=== PATIENT | male | born 1955 | race Caucasian/White ===

== ENCOUNTER 2019-10-30 06:30 | Outpatient (CLI) | payer BC, OTHER ==
[2019-10-30 18:30] LABS: Bacteria/HPF None Seen HPF (None Seen); Bilirubin Negative (Negative); Blood, Urine 2+ (Negative); Clarity Clear (Clear); Glucose, Urine (Dipstick) Normal (Negative); Ketone, Urine Negative (Negative); Leukocyte 75 Leu/uL (Negative); Nitrite Negative (Negative); Protein, Urine (Dipstick) Negative (Neg-Trace); RBC/HPF 21-50 HPF (0-3); Specific Gravity, Urine 1.022 (1.002-1.036); Squamous Epithelial None Seen HPF (0-3); Urobilinogen Normal mg/dL (Less than 2); pH, Urine 5.5 (5.0-9.0)
[2019-10-30 18:32] LABS: INR-International Normal Ratio 0.9; PTT 27.2 sec (22.9-36.1); Prothrombin Time 12.2 sec (12.0-14.7)
[2019-10-30 18:34] LABS: Hemoglobin 15.3 g/dL (14.0-18.0); Mean Corpuscular HGB CONC 34.5 g/dL (32.0-36.0); Mean Corpuscular Hemoglobin 32.8 pg (27.0-31.0); Mean Corpuscular Volume 94.9 fL (78.0-98.0); Mean Platelet Volume 7.9 fL (7.4-10.4); Platelet Count 215 thou/uL (130-400); RBC Distribution Width 11.3 % (11.5-14.5); Red Blood Cell (RBC) Count 4.67 mill/uL (4.70-6.10); White Blood Cell (WBC) Count 8.4 thou/uL (4.8-10.8)
[2019-10-30 18:58] LABS: Anion Gap 16 mmol/L (10-20); BUN (Urea Nitrogen) 24 mg/dL (8.4-25.7); Calc. Creatinine Clearance 0 mL/min (70-130); Calcium 9.6 mg/dL (7.8-10.44); Carbon Dioxide 25 mmol/L (23-31); Chloride 106 mmol/L (98-107); Estimated GFR-MDRD 75; Glucose 103 mg/dL (80-115); Potassium 4.9 mmol/L (3.5-5.1); Sodium 142 mmol/L (136-145)
[2019-10-31 13:23] LABS: SARS-CoV-2 MS2 Positive; SARS-CoV-2 N Gene Negative; SARS-CoV-2 S Gene Negative; SARS-CoV-2 by NAA Not Detected (NotDetected); SARS-CoV-2 orf1ab Negative
== END 2019-10-30 06:31 | disposition home or self-care (01) ==
LOC: LABBT 06:30
PROVIDERS: ATTEND Urology
DX: Z01.818 Encounter for other preprocedural examination (principal); Z20.828 Contact with and (suspected) exposure to other viral communicable diseases; N20.0 Calculus of kidney
CPT/HCPCS: 80048; 81001; 85027; 85610; 85730; 87086; 87635; 93005; 93010; U0003

== ENCOUNTER 2019-11-02 09:17 | Day surgery (SDC) | payer BC ==
[2019-11-01 13:18] VITALS: BMI 28.5
[~2019-11-02 09:17] MED LIST: Lidocaine 1% PF 5 ML VIAL ONE; Ondansetron PF 4 MG/2 ML Vial ONE; PROPOFOL 200 MG/20 ML VIAL ONE; Rocuronium Bromide 10 MG/ML (10ML VIAL) ONE
[2019-11-02] MEDS ORDERED: Levofloxacin 500 mg/D5W 100 ml Premix Bag ONE (10:55)
[2019-11-02] MEDS ORDERED: Fentanyl 100 MCG/2 ML VIAL ONE (15:22)
[2019-11-02] MEDS ORDERED: Iothalamate Meglumine 60% 50 ML VIAL FS ONE (15:29)
[2019-11-02] MEDS ORDERED: B & O ONE (16:00)
[2019-11-02] MEDS ORDERED: Oxybutynin 5 MG TAB ONE (17:06)
--- NOTE | 2019-11-02 23:53 | OP ---
DATE OF PROCEDURE: 11/02/2019 SERVICES: Urology. PREOPERATIVE DIAGNOSIS: Right ureteral stone. POSTOPERATIVE DIAGNOSIS: Right ureteral stone. PROCEDURE PERFORMED: Right ureteroscopy laser lithotripsy, basket extraction of stones, and placement of a 6 x 26 double-J stent. INDICATION FOR PROCEDURE: Mr. Hodge is a 64-year-old white male with a right 8 mm proximal ureteral stone. This had failed spontaneous medical expulsive therapy. We had elected for ureteroscopy with risks and benefits discussed. He has agreed to proceed forward. DESCRIPTION OF PROCEDURE: After identification of armband and verification of consent, the patient was brought back to the operating room. He underwent general anesthesia with endotracheal intubation. He was then placed in dorsal lithotomy position and prepped and draped in usual sterile fashion. After appropriate time-out, a lubricated 22-Nauruan rigid cystoscope was introduced per urethra into the bladder and attention was turned to the right ureteral orifice. This was cannulated with a 0.035 Sensor wire up to the level of renal pelvis. This has a little bit difficulty in navigating past the stone, but was able to successfully navigate past. The cystoscope was then removed and a dual-lumen was advanced over the Sensor wire up to the level of the mid ureter. An Amplatz Super-Stiff wire was then placed through the second lumen and navigated up to the level of the stone. Attempts to pass the stone were unsuccessful, therefore we made a small coil with the flexible end of the Super Stiff wire just proximal to the stone and then the dual-lumen was removed. A long 12 x 14-Nauruan Bard ureteral access sheath was then advanced over the Super Stiff wire up to the level of the mid ureter. The inner cannula and the Super Stiff wire were then removed leaving the outer sheath and Sensor wire in place as a safety wire. A flexible digital ureteroscope was then passed through the ureteral access sheath up to the level of the stone, which was then found impacted in the proximal ureter. A 273 micron ball-tip laser fiber was then used to break the stone into small pieces and a 1.9-Nauruan ZeroTip Nitinol basket used to extract the larger stone fragments. The smaller stone fragments seemed to come out on their own and passed out through the sheath without issue. A pyeloscopy was performed, which demonstrated a hydronephrotic kidney with dilated renal calices. There were no additional stones noted within the kidney. Pull-back ureteroscopy was employed and no additional stones were found within the ureter. No mucosal dilations or splitting had occurred either. The cystoscope was then backloaded over the Sensor wire back into the bladder and a 6 x 26 double-J stent was advanced over the Sensor wire up to the level of renal pelvis. The wire was removed leaving a good curl in the kidney and a good curl in the bladder. The bladder was then emptied and cystoscope was removed. The patient was then taken out of position and awakened, taken to PACU for recovery in stable condition. He did have a B and O suppository placed in his rectum prior to awaking. COMPLICATIONS: None. ESTIMATED BLOOD LOSS: Minimal. RETAINED TUBES AND DRAINS: 6 x 26 double-J stent on the right. SPECIMENS: Stone for stone analysis. DISPOSITION: The patient will be discharged home and follow up with me in approximately 1 week for cystoscopy and stent removal. Job ID: [id number]
== END 2019-11-02 18:20 | disposition home or self-care (01) ==
LOC: SDC 09:17
PROVIDERS: ATTEND Urology
DX: N13.2 Hydronephrosis with renal and ureteral calculous obstruction (principal); N40.0 Benign prostatic hyperplasia without lower urinary tract symptoms; F41.9 Anxiety disorder, unspecified; E29.1 Testicular hypofunction; Z87.891 Personal history of nicotine dependence; Z79.899 Other long term (current) drug therapy
CPT/HCPCS: 74420; 76000; 82365; 88300; J1956; J2405; J2704; J3010

== ENCOUNTER 2020-01-07 14:26 | Emergency (ER) | payer BC ==
[2020-01-07] MEDS ORDERED: Morphine 4 MG/ML VIAL ONE (14:52)
[2020-01-07] MEDS ORDERED: Ketorolac Tromethamine 30 MG/ML VIAL ONE (14:53)
[2020-01-07] MEDS ORDERED: Ondansetron PF 4 MG/2 ML Vial ONE (14:53)
[2020-01-07 15:12] LABS: #Eosinphils 0.1 thou/uL (0.0-0.7); #Monocytes 0.6 thou/uL (0.11-0.59); #Neutrophils 13.5 thou/uL (1.40-6.50); %Basophils 0.1 % (0.0-1.0); %Eosinophils 0.8 % (0.0-10.0); %Lymphocytes 6.3 % (21.0-51.0); %Monocytes 3.8 % (0.0-10.0); Hemoglobin 15.4 g/dL (14.0-18.0); Mean Corpuscular HGB CONC 34.6 g/dL (32.0-36.0); Mean Corpuscular Hemoglobin 33.1 pg (27.0-31.0); Mean Corpuscular Volume 95.5 fL (78.0-98.0); Mean Platelet Volume 7.5 fL (7.4-10.4); Platelet Count 205 thou/uL (130-400); RBC Distribution Width 11.1 % (11.5-14.5); Red Blood Cell (RBC) Count 4.64 mill/uL (4.70-6.10); White Blood Cell (WBC) Count 15.2 thou/uL (4.8-10.8)
--- NOTE | 2020-01-07 15:35 | CT ---
CT Abdomen Pelvis WO Con: 01/07/2020 3:13 PM HISTORY: Left flank pain COMPARISON: 09/26/2019 TECHNIQUE: Multiple contiguous axial images were obtained and a CT of the abdomen and pelvis without IV contrast . Coronal and sagittal reformats were performed. FINDINGS: This examination is limited for the evaluation of solid organs and vascular structures due to the lac k of intravenous contrast. Lower Chest: within normal limits. Abdomen: Liver: within normal limits. Bile Ducts: Normal caliber. Gallbladder: No calcified gallstones. Normal caliber wall. Pancreas: within normal limits. Spleen: within normal limits. Adrenals: within normal limits. Kidneys: Moderate left hydronephrosis. No residual calcifications are seen in either kidney. Pelvis: Reproductive Organs: Calcifications in the prostate. Ureters: 3-4 mm left distal ureteral calcification with moderate hydroureter Bladder: within normal limits. Bowel: Normal caliber. Mesenteric Lymph Nodes: No enlarged mesenteric lymph nodes. Peritoneum: No ascites or free air, no fluid collection. Vessels: Normal caliber aorta with atherosclerotic calcifications. Retroperitoneum: within normal limits. Abdominal Wall: within normal limits. Bones: Sclerotic changes are seen surrounding both sacroiliac joints. IMPRESSION: Distal left ureteral calcification with moderate left hydronephrosis.
[2020-01-07 15:39] LABS: ALT (SGPT) 17 U/L (8-55); AST (SGOT) 15 U/L (5-34); Albumin 4.6 g/dL (3.4-4.8); Alkaline Phosphatase 83 U/L (40-110); Anion Gap 15 mmol/L (10-20); BUN (Urea Nitrogen) 21 mg/dL (8.4-25.7); Bilirubin, Total 0.6 mg/dL (0.2-1.2); Calc. Creatinine Clearance 0 mL/min (70-130); Calcium 9.3 mg/dL (7.8-10.44); Carbon Dioxide 27 mmol/L (23-31); Chloride 101 mmol/L (98-107); Estimated GFR-MDRD 61; Glucose 154 mg/dL (80-115); Potassium 3.9 mmol/L (3.5-5.1); Protein, Total 7.6 g/dL (5.8-8.1); Sodium 139 mmol/L (136-145)
[2020-01-07 16:48] LABS: Bilirubin Negative (Negative); Blood, Urine 3+ (Negative); Clarity Extra Turbid (Clear); Glucose, Urine (Dipstick) Normal (Negative); Ketone, Urine Negative (Negative); Leukocyte 25 Leu/uL (Negative); Mucous/LPF 1+ LPF (<2+); Nitrite Negative (Negative); Protein, Urine (Dipstick) 100 mg/dL (Neg-Trace); RBC/HPF Greater than 50 HPF (0-3); Specific Gravity, Urine 1.033 (1.002-1.036); Urobilinogen Normal mg/dL (Less than 2); pH, Urine 5.5 (5.0-9.0)
[2020-01-07 16:53] LABS: Squamous Epithelial 0-3 HPF (0-3); Transitional Epithelial 0-3 HPF (None Seen)
[2020-01-07 16:54] LABS: Bacteria/HPF None Seen HPF (None Seen); Calcium Oxalate Crystals 1+ HPF (None Seen)
== END 2020-01-07 17:31 | disposition home or self-care (01) ==
LOC: ERS 14:26
DX: N13.2 Hydronephrosis with renal and ureteral calculous obstruction (principal); Z87.442 Personal history of urinary calculi
CPT/HCPCS: 74176; 80053; 81003; 81015; 85025; 96374; 96375; J1885; J2270; J2405